=== PATIENT | male | born 1940 | race Caucasian/White ===

== ENCOUNTER 2017-01-13 09:17 | Day surgery (SDC) | payer BC, MEDICARE ==
[2017-01-13] MEDS ORDERED: ONDANSETRON HCL INJ/PF 4 MG/2 ML SDV ONE (10:03)
[2017-01-13] MEDS ORDERED: LIDOCAINE 2% JELLY 30 ML TUBE ONE (10:03)
[2017-01-13] MEDS ORDERED: NALOXONE HCL INJ/PF 0.4 MG/1 ML SDV ONE (10:03)
[2017-01-13] MEDS ORDERED: FENTANYL CITRATE INJ/PF 100 MCG/2 ML AMPUL ONE (10:04)
[2017-01-13] MEDS ORDERED: GLYCOPYRROLATE INJ 0.4 MG/2 ML VIAL ONE (10:04)
[2017-01-13] MEDS ORDERED: MIDAZOLAM 2 MG/2 ML INJ ONE ×2 (10:04)
[2017-01-13] MEDS ORDERED: PROMETHAZINE HCL INJ 25 MG/1 ML VIAL ONE (10:04)
[2017-01-13] MEDS ORDERED: FLUMAZENIL INJ 0.5 MG/5 ML VIAL IV ONE (10:05)
[2017-01-13] MEDS ORDERED: GLUCAGON,HUMAN RECOMB 1 MG INJ ONE (10:05)
[2017-01-13] MEDS ORDERED: EPINEPHRINE INJ 1 MG/10 ML DISP.SYRIN ONE (10:05)
[2017-01-13 11:33] VITALS: BP 130/69
[2017-01-13 12:10] LABS: ABSOLUTE EOSINOPHILS # (AUTO) 0.1 10^3/uL (0.0-0.6); ABSOLUTE LYMPHOCYTES (AUTO) 1.2 10^3/uL (0.5-4.7); ABSOLUTE MONOCYTES (AUTO) 0.6 10^3/uL (0.1-1.4); ABSOLUTE NEUT (AUTO) 4.8 10^3/uL (1.7-8.2); HEMOGLOBIN 14.9 g/dL (13.5-17.0); MEAN CORPUSCULAR HGB CONC 33.8 g/dL (32.0-36.0); MEAN CORPUSCULAR VOLUME 85 fl (80-97)
[2017-01-13 12:12] LABS: BASOPHILS % (AUTO) 0.4 % (0-2); EOSINOPHILS % (AUTO) 0.9 % (0-6); HEMATOCRIT 44.1 % (37.9-51.0); HGB HCT DIFFERENCE 0.6; LYMPHOCYTES % (AUTO) 18.3 % (13-45); MEAN CORPUSCULAR HEMOGLOBIN 28.7 pg (27.0-33.4); RED BLOOD COUNT 5.19 10^6/uL (4.35-5.55); RED CELL DISTRIBUTION WIDTH 14.2 % (11.5-14.0); SEGMENTED NEUTROPHILS % (AUTO) 71.4 % (42-78); WHITE BLOOD COUNT 6.7 10^3/uL (4.0-10.5)
--- NOTE | 2017-01-13 13:19 | OPERATIVE REPORT E ---
Operative Report NAME: MADY KAPOOR : 1940 AGE: 76Y DATE OF SURGERY: ROOM: PREOPERATIVE DIAGNOSIS: Rectal bleeding. POSTOPERATIVE DIAGNOSES: 1. Mild external thrombosed hemorrhoids. 2. Sigmoid, descending colon, diverticulosis, severe. 3. Small benign-looking polyp, 3 mm, mid-ascending colon. SURGEON: VICKEY MARRUFO M.D. ANESTHESIA: Versed 3, fentanyl 100. TISSUE REMOVED OR ALTERED: None. FINDINGS: Rectal exam, thrombosed external hemorrhoids. No active bleeding. Rectum, normal. Sigmoid, descending colon, diverticulosis. Transverse colon, normal. Ascending colon, 2 mm benign-looking polyp in the proximal ascending. Cecum, normal. No biopsy obtained. Patient cannot stop his Plavix. He has multiple stents. His recent stent for coronary artery disease is less than August last year. PROCEDURE: Cecum, normal. Ascending colon, small polyp, benign, 3 mm, too small to biopsy, and the patient is on Plavix. Transverse colon, normal. Descending sigmoid diverticulosis. PLAN: 1. Resume all medications. 2. Baseline CBC and CEA, and Chem profile. 3. Patient to see us in the office in the next few days. DICTATING PHYSICIAN: VICKEY MARRUFO M.D. [id number] Y#: [id number] ID: [id number] JOB#: [id number] ACCT: [id number] cc:VICKEY MARRUFO M.D., SHYAMAL M. D. >
--- NOTE | 2017-01-13 13:34 | HISTORY AND PHYSICAL E ---
History and Physical NAME: MADY KAPOOR : 1940 AGE: 76Y ADMITTED: 01/13/2017 ROOM: ADMIT DATE: 01/13/2017 CHIEF COMPLAINT: Patient known to me back in 1994 where he did have upper scope showing esophagitis, gastritis, referred to us at that time by Dr. Eckert. At this time, patient presented regarding rectal bleeding. MEDICATIONS: The patient takes: 1. Coumadin. 2. Plavix. PAST MEDICAL HISTORY: History of pulmonary emboli. PLAN: We will arrange for colon exam. Patient to be done while on Plavix. He does have multiple stents. The patient is being followed by Dr. Fuchs. ALLERGIES: 1. Codeine. 2. Phenergan. SOCIAL HISTORY: Patient does not smoke, does not drink. The patient did have upper scope in the past. REVIEW OF SYSTEMS: HEAD, EYES, EARS, NOSE AND THROAT: Unremarkable. GASTROINTESTINAL: History of rectal bleeding. PHYSICAL EXAMINATION: GENERAL: Pleasant, alert, oriented in no acute distress. VITAL SIGNS: Temperature is 98. Pulse 80. Respirations 20. Blood pressure 100/80. HEAD, EYES, EARS, NOSE AND THROAT: Normal. ABDOMEN: Soft. NEUROLOGIC EXAM: Negative. The patient presented at this time regarding colonoscopy. He did have previous colonoscopy in [place] and was told that he may have poor circulation, i.e., maybe ischemic colitis. At this time, patient for colonoscopy. The patient to be done while on medication, Plavix and Arixtra. The patient presented at this time regarding colonoscopy regarding rectal bleeding. Patient to be done in Endoscopy without stopping his Plavix regarding coronary artery disease. CONCLUSIONS: Rectal bleeding. The patient to be done while on Plavix. He has stents. His last stent is later than a year. Patient followed by Dr. Fuchs. PLAN: Colonoscopy while on anticoagulant. DICTATING PHYSICIAN: VICKEY MARRUFO M.D. [id number] PHY#: [id number] ID: [id number] JOB#: [id number] ACCT: [id number] cc:VICKEY MARRUFO M.D., SHYAMAL M. D. >
--- NOTE | 2017-01-14 18:28 | DISCHARGE SUMMARY E ---
Discharge Summary NAME: MADY KAPOOR : 1940 AGE: 76Y ADMITTED: 01/13/2017 DISCHARGED: 01/13/2017 A 76-year-old male with severe coronary artery disease, multiple cardiac catheterizations, multiple stents. Presented with rectal bleeding. The patient takes Plavix and aspirin. Today's colonoscopy shows no active bleeding, no cancer. Benign-looking polyp 3 mm mid ascending colon. Severe diverticulosis sigmoid and descending colon, not bleeding. Stool brown, scattered all around the colon, most likely bleeding from thrombosed external hemorrhoids. DISCHARGE PLAN: Baseline CBC. Continue all medications. Soft low residual diet. Followup visit in the next few days. DICTATING PHYSICIAN: VICKEY MARRUFO M.D. [id number] PHY#: [id number] ID: [id number] JOB#: [id number] ACCT: [id number] cc:VICKEY MARRUFO M.D., SHYAMAL M. D. >
== END 2017-01-13 12:00 | disposition home or self-care (01) ==
LOC: END 09:17
PROVIDERS: ATTEND Specialist
PROC: 0DJD8ZZ Inspection of Lower Intestinal Tract, Via Natural or Artificial Opening Endoscopic (ICD-10-PCS; principal; 2017-01-13 10:00)
DX: K62.5 Hemorrhage of anus and rectum (principal); K57.30 Diverticulosis of large intestine without perforation or abscess without bleeding; K64.5 Perianal venous thrombosis; D12.2 Benign neoplasm of ascending colon; I25.10 Atherosclerotic heart disease of native coronary artery without angina pectoris; Z79.02 Long term (current) use of antithrombotics/antiplatelets; Z79.82 Long term (current) use of aspirin; Z98.61 Coronary angioplasty status; Z79.01 Long term (current) use of anticoagulants; Z86.711 Personal history of pulmonary embolism; Z88.5 Allergy status to narcotic agent; Z88.8 Allergy status to other drugs, medicaments and biological substances
CPT/HCPCS: 45378; 36415; 85025; J2250; J3010; J1610; J2405; J0171; J2310; J2550; J3490

== ENCOUNTER 2017-05-04 00:26 | Observation (INO) | payer MEDICARE ==
[2017-05-04] MEDS ORDERED: ASPIRIN 81 MG TABLET, CHEWABLE PO ONE (00:28)
[2017-05-04] MEDS ORDERED: ASPIRIN 81 MG TABLET, ENT COATED PO ONE (00:43)
[2017-05-04 00:56] LABS: ABSOLUTE BASOPHILS # (AUTO) 0.1 10^3/uL (0.0-0.2); ABSOLUTE EOSINOPHILS # (AUTO) 0.1 10^3/uL (0.0-0.6); ABSOLUTE LYMPHOCYTES (AUTO) 1.5 10^3/uL (0.5-4.7); ABSOLUTE MONOCYTES (AUTO) 0.6 10^3/uL (0.1-1.4); BASOPHILS % (AUTO) 1.1 % (0-2); EOSINOPHILS % (AUTO) 0.8 % (0-6); HEMATOCRIT 41.9 % (37.9-51.0); HEMOGLOBIN 13.7 g/dL (13.5-17.0); HGB HCT DIFFERENCE -0.8; LYMPHOCYTES % (AUTO) 18.4 % (13-45); MEAN CORPUSCULAR HEMOGLOBIN 27.7 pg (27.0-33.4); MEAN CORPUSCULAR HGB CONC 32.7 g/dL (32.0-36.0); MEAN CORPUSCULAR VOLUME 85 fl (80-97); MONOCYTES % (AUTO) 6.9 % (3-13); RED BLOOD COUNT 4.96 10^6/uL (4.35-5.55); RED CELL DISTRIBUTION WIDTH 14.5 % (11.5-14.0); SEGMENTED NEUTROPHILS % (AUTO) 72.8 % (42-78); WHITE BLOOD COUNT 8.3 10^3/uL (4.0-10.5)
--- NOTE | 2017-05-04 01:24 | RADIOLOGY REPORT (SQ) ---
EXAM DESCRIPTION: CHEST SINGLE VIEW COMPLETED DATE/TIME: 05/04/2017 1:14 am REASON FOR STUDY: cp COMPARISON: Chest x-ray 09/30/2012, 06/09/2012. EXAM PARAMETERS: NUMBER OF VIEWS: One view. TECHNIQUE: Single frontal radiographic view of the chest acquired. RADIATION DOSE: NA LIMITATIONS: None. FINDINGS: LUNGS AND PLEURA: No consolidation, pneumothorax or pleural effusion. MEDIASTINUM AND HILAR STRUCTURES: No masses. Contour normal. HEART AND VASCULAR STRUCTURES: Heart normal in size. No overt vascular congestion. BONES: No acute findings. HARDWARE: Sternotomy wires are present. IMPRESSION: No acute radiographic finding in the chest. TECHNICAL DOCUMENTATION: JOB ID: [id number]
[2017-05-04 01:54] LABS: ALANINE AMINOTRANSFERASE 43 U/L (21-72); ALBUMIN 3.3 g/dL (3.5-5.0); ALKALINE PHOSPHATASE 81 U/L (38-126); ANION GAP 10 (5-19); ASPARTATE AMINO TRANSFERASE 18 U/L (17-59); BILIRUBIN,DIRECT 0.3 mg/dL (0.0-0.4); BILIRUBIN,TOTAL 0.5 mg/dL (0.2-1.3); BLOOD UREA NITROGEN 23 mg/dL (7-20); CALCIUM 8.7 mg/dL (8.4-10.2); CARBON DIOXIDE 25 mmol/L (22-30); CHLORIDE 103 mmol/L (98-107); CREATINE KINASE 48 U/L (55-170); CREATININE RESULT 0.95 mg/dL (0.52-1.25); GLUCOSE 93 mg/dL (75-110); SODIUM 137.7 mmol/L (137-145); TOTAL PROTEIN 6.6 g/dL (6.3-8.2)
[2017-05-04 02:05] LABS: CREATINE KINASE MB 0.59 ng/mL (<4.55); TROPONIN I < 0.012 ng/mL
--- NOTE | 2017-05-04 02:27 | ER Document Report ---
ED Cardiac - General Mode of Arrival: Medic Information source: Patient TRAVEL OUTSIDE OF THE [place] IN LAST 30 DAYS: No - HPI Patient complains to provider of: Chest pain, Shortness of breath Associated symptoms: Other - see above <ROSEY SILVERMAN - Last Filed: 05/04/17 03:35> <BENEDICTO JO - Last Filed: 05/04/17 05:20> - General Chief Complaint: Chest Pain Stated Complaint: CHEST PAIN Time Seen by Provider: 05/04/17 00:42 Notes: Patient is a 77 year old male who presents to the ED via EMS with complaints of chest pain with onset tonight while taking an albuterol treatment. Patient took 4 Nitroglycerin at home. Patient denies any chest pain currently. Patient states this feels like his chest pain in the past. Patient has recently been treated with antibiotics for pneumonia and bronchitis. Patient had open heart surgery in 2004 in [place] and has 12 stents in his heart. Patient states the last stent was placed in August 2 years ago. Patients last cardiac catheterization was done in October, patient states he has multiple blockages in the right side. Patient denies a history of COPD or Emphysema and is not on home O2. Patient also complaints of a cough and some SOB. Patient is on plavix. No other concerns or complaints at this time. ( ROSEY SILVERMAN) - Related Data Allergies/Adverse Reactions: codeine [Codeine] Allergy (Verified 01/12/17 14:38) "heart beats too fast" enoxaparin sodium [From Lovenox] Allergy (Verified 01/12/17 14:38) "heart beats too slow" nitroglycerin [From Nitro-Bid] Allergy (Verified 01/12/17 14:38) headaches, sick to stomach promethazine HCl [From Phenergan] Allergy (Verified 01/12/17 14:38) "see spiders on the frankel" Past Medical History - General Information source: Patient - Social History Smoking Status: Unknown if Ever Smoked Family History: Reviewed & Not Pertinent - Past Medical History Cardiac Medical History: Reports: Hx Congestive Heart Failure, Hx Coronary Artery Disease, Hx Heart Attack - 4, Hx Hypercholesterolemia, Hx Hypertension Pulmonary Medical History: Reports: Hx Bronchitis, Hx Pneumonia Denies: Hx Asthma, Hx COPD, Hx Tuberculosis Neurological Medical History: Denies: Hx Cerebrovascular Accident, Hx Seizures GI Medical History: Reports: Hx Diverticulitis, Hx Gastroesophageal Reflux Disease Musculoskeltal Medical History: Denies Hx Arthritis Past Surgical History: Reports: Hx Cardiac Surgery - 9 Stints, Quad Bypass, Hx Coronary Artery Bypass Graft, Hx Inguinal Hernia. Denies: Hx Pacemaker - Immunizations Immunizations up to date: Yes Hx Diphtheria, Pertussis, Tetanus Vaccination: Yes <ANDRAROSEY - Last Filed: 05/04/17 03:35> Review of Systems - Review of Systems Constitutional: No symptoms reported EENT: No symptoms reported Cardiovascular: See HPI, Chest pain Respiratory: See HPI, Cough, Short of breath Gastrointestinal: No symptoms reported Genitourinary: No symptoms reported Male Genitourinary: No symptoms reported Musculoskeletal: No symptoms reported Skin: No symptoms reported Hematologic/Lymphatic: No symptoms reported Neurological/Psychological: No symptoms reported <TIM SILVERMANANDRA - Last Filed: 05/04/17 03:35> Physical Exam - General General appearance: Appears well, Alert In distress: None - HEENT Head: Normocephalic, Atraumatic Eyes: Normal Extraocular movements intact: Yes Pupils: PERRL - Respiratory Respiratory status: No respiratory distress Chest status: Nontender Breath sounds: Normal Chest palpation: Normal - Cardiovascular Rhythm: Regular Heart sounds: Normal auscultation Murmur: No - Abdominal Inspection: Normal Distension: No distension Tenderness: Nontender - Back Back: Normal - Extremities General upper extremity: Normal inspection, Normal ROM General lower extremity: Normal inspection, Normal ROM - Neurological Neuro grossly intact: Yes Cognition: Normal Orientation: AAOx4 Ray Coma Scale Eye Opening: Spontaneous Ray Coma Scale Verbal: Oriented Ray Coma Scale Motor: Obeys Commands [place] Coma Scale Total: 15 Speech: Normal Motor strength normal: LUE, RUE, LLE, RLE Sensory: Normal - Psychological Associated symptoms: Normal affect, Normal mood - Skin Skin Temperature: Warm Skin Moisture: Dry Skin Color: Normal <ROSEY SILVERMAN - Last Filed: 05/04/17 03:35> Course - Laboratory Result Diagrams: 05/04/17 00:43 05/04/17 01:20 - Consults Dr. Arechiga, hospitalist Time consulted: 03:34 <ROSEY SILVERMAN - Last Filed: 05/04/17 03:35> - Laboratory Result Diagrams: 05/04/17 00:43 05/04/17 01:20 <BENEDICTO JO - Last Filed: 05/04/17 05:20> - Re-evaluation Re-evalutation: 05/04/17 03:37 Presents emergency department having acute onset of severe chest pain at home with breathing treatment. Has been treated recently for bronchitis and is on inhalers and Ceftin. Chest x-ray was negative for pneumonia. He said he developed acute onset of severe chest pain felt like his previous episodes where he says he clutched his chest became diaphoretic ashen toscano and told her that he was going to . Ambulance got there they gave him aspirin and 4 sublingual nitro sprays and his chest pain was resolved. He is chest pain-free in the emergency department he has extensive cardiac history including CABG and multiple stents. Left heart catheter evaluated to ago at which point they said small blockages not amenable to therapy but more medical treatment. He sees Dr. Fuchs here in [place]. No recent history of travel surgery immobilization DVT or pulmonary emboli. He has a left bundle branch block which is consistent with his previous and not new he has remained chest free chest pain-free and hemodynamically stable in the emergency department no clinical concern for dissection or PE. EKG does not show an acute [place] initial cardiac enzymes are negative. Will admit to the hospital chest pain observation with consultation to cardiology. (BENEDICTO JO) - Vital Signs Vital signs: Temp Pulse Resp BP Pulse Ox 98.3 F 16 113/72 96 05/04/17 00:43 05/04/17 05:00 05/04/17 04:00 05/04/17 05:00 - Laboratory Laboratory results interpreted by me: 05/04/17 05/04/17 00:43 01:20 RDW 14.5 H BUN 23 H Creatine Kinase 48 L Albumin 3.3 L - EKG Interpretation by Me Additional EKG results interpreted by me: 05/04/17 03:39 EKG interpreted by myself to reveal sinus rhythm at 77 bpm with incomplete left bundle branch block has a history of left bundle branch block present on 2011. No acute ST segment elevation or depression (BENEDICTO JO) - Consults Dr. Arechiga, hospitalist Reason for consultation: 05/04/17 03:34 Discussed patient. Patient is accepted for admission. (ROSEY SILVERMAN) Discharge <ROSEY SILVERMAN - Last Filed: 05/04/17 03:35> - Discharge Admitting Provider: Hospitalist Unit Admitted: Telemetry <BENEDICTO JO - Last Filed: 05/04/17 05:20> - Discharge Clinical Impression: Chest pain Qualifiers: Chest pain type: unspecified Qualified Code(s): R07.9 - Chest pain, unspecified Scribe Attestation: 05/04/17 03:38 I personally performed the services described in the documentation reviewed the documentation recorded by my scribe in my presence and it accurately and completely records my words and actions (BENEDICTO JO) Scribe Documentation - Scribe Written by Gene:: gene Viera, 05/04/2017, 1427 acting as scribe for :: Ever <ROSEY SILVERMAN - Last Filed: 05/04/17 03:35>
[2017-05-04] MEDS ORDERED: ACETAMINOPHEN 325 MG TABLET PO PRN (03:41)
[2017-05-04 04:01] LABS: ADD ON TESTING BLD IN LAB ACKNOWLEDGE
[2017-05-04] MEDS ORDERED: MAG HYDROX/AL HYDROX/SIMETH SUSP 30 ML UDCUP PO PRN ×2 (06:40→14:03)
--- NOTE | 2017-05-04 07:31 | PDOC H&P ---
History of Present Illness Admission Date/PCP: 05/04/17 06:40 LAVINIA SHIPMAN PA-C Cardiology Dr. Fuchs Patient complains of: Chest pain History of Present Illness: MADY KAPOOR is a 77 year old with underlying coronary artery disease, having undergone a four-vessel bypass in 2004, with implantation subsequently of multiple stents. Cardiac catheterization in [place] in October of this year revealed disease that was reportedly not amenable to further intervention. Presents to the emergency room for evaluation of sudden onset of prominent pressure-like and sharp substernal chest pain the evening of the while taking an albuterol treatment for his underlying on home O2 dependent COPD. Was rather frightening to the patient; reportedly told his that he thought he was going to . Associated cold sweats, and nausea, no vomiting. Complete resolution with 4 sublingual nitroglycerin sprays. Has not recurred. Has had prior such episodes in the past. Over the last 2 or 3 weeks, he has had problems with respiratory tract infections, reportedly diagnosed 2 weeks ago with influenza A; refused to take Tamiflu due to concern for cardiac side effects. This past Monday he finished a Z-Arnol; on the day the Z-Arnol was started, he finished a course of oral Levaquin. Still bothered by a persistent and quite annoying dry cough. History of both DVT and pulmonary embolus when he was recovering from his bypass graft in 2004. States he was on Coumadin for approximately a year. No recent long trip with prolonged inactivity, or unusual lower extremity swelling or tenderness. Currently resting quietly, chest pain-free. Patient has been discussed with emergency room physician who evaluated the patient. . Laboratory results are listed in [facility] and are reviewed. X-ray summary results are listed below, with full report(s) reviewed. . EKG reviewed and compared to a prior tracing from September 28, 2012. Social history/personal habits: . Has children. Retired. Distant history of cigarette smoking, approximately 40 Years ago. No alcohol or illicit drug use. Allergies/adverse reactions are listed in [facility] and are reviewed. Home medications initially autopopulated into [facility] may not accurately reflect patient's true medications, dosages, and/or frequencies. 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 Unfortunately, patient not certain of all medications/dosages/frequencies. REVIEW OF SYSTEMS: Constitutional: See history and present illness. Eyes: Wears glasses. ENT: No swallowing problems or complaints. Partial hearing loss. Pulmonary: See history and present illness. Cardiovascular: See history and present illness. Gastrointestinal: See history and present illness. Skin: No current complaints, including rash. Hematologic: Easy bruising. Neurologic: No current complaints, including numbness or tingling. Musculoskeletal: No current or chronic joint complaints, such as arthritis. Psychiatric: Intermittent problems with panic disorder. Mild occasional depression; denies suicidal or homicidal ideation. Endocrine: No current complaints, including polyuria. Genitourinary: No current complaints, including dysuria. PHYSICAL EXAMINATION: 6 feet 1 inches tall. 81.4 kg. BMI 23.7 kg/m. Blood pressure 137/82. Pulse 55 and regular. 100% saturation on 3 L oxygen per nasal cannula. Respirations are 14 and unlabored. Temperature 98.3. Thin somewhat chronically ill-appearing male who appears perhaps a bit older than his stated age. Pleasant awake alert and cooperative. Somewhat anxious at times; rather talkative, but no lavinia agitation. is present at his side; patient approves. Skin is warm and dry. No grossly obvious evidence of rash in areas of skin examined. No subcutaneous nodules palpated. ENT: Perhaps mildly hard of hearing to normal conversation. Tongue midline on protrusion pink and moist. Eyes: No scleral icterus. Pupils equal and reactive to light at 4 mm. [place] conjunctivae. Neck is supple and nontender to gentle active range of motion and palpation. Midline trachea. No palpable thyroid nodule mass enlargement or tenderness. Lymphatic: No palpable cervical or clavicular nodes. Neck and lymphatic exams limited by patient body habitus. Psychiatric: Reasonable insight into acute and chronic medical issues. Oriented to time location and why here. Lungs: Auscultation reveals clear and equal breath sounds bilaterally. No use of accessory respiratory muscles. Intermittent somewhat prominent dry cough. Cardiovascular: Heart regular rate and rhythm, without gallop murmur or rub. No carotid or abdominal aortic bruits. No ankle or pedal edema. Faintly palpable dorsalis pedis pulses. Abdomen:soft slightly distended nontender with positive bowel sounds. Unable to adequately evaluate abdomen for masses or organomegaly due to distention. Compression of neither his upper abdomen nor sternum reproduces his previously noted chest discomfort. Extremities: Feet are warm and dry. No calf tenderness to compression. No grossly obvious visual evidence of calf swelling. Gentle manipulation of lower extremities fails to reveal any obvious evidence of injury or instability to knees hips or ankles. Neurologic: Moves upper extremities grossly normally. Patellar reflexes absent. Absent Babinski. Light touch is intact at feet. Dorsiflexion and plantarflexion of feet 5 / 5 and symmetric. Past Medical History Cardiac Medical History: Reports: Congestive Heart Failure, Coronary Artery Disease, DVT - 2005 after coronary bypass, Myocardial Infarction - 4, Hyperlipidema, Hypertension, Pulmonary Embolism - 2005 after coronary bypass Pulmonary Medical History: Reports: Bronchitis, Chronic Obstructive Pulmonary Disease (COPD), Pneumonia Denies: Asthma, Sleep Apnea, Tuberculosis EENT Medical History: Reports: Eyes - Glasses, Ears - Partial hearing loss Denies: Throat Neurological Medical History: Reports: Other - Prior TIA Denies: Hemorrhagic CVA, Ischemic CVA, Seizures Endocrine Medical History: Denies: Diabetes Mellitus Type 1, Diabetes Mellitus Type 2, Hyperthyroidism, Hypothyroidism Renal/ Medical History: Reports: None GI Medical History: Reports: Gastroesophageal Reflux Disease Denies: Cirrhosis, Hepatitis, Peptic Ulcer Disease Musculoskeltal Medical History: Denies: Arthritis Skin Medical History: Reports: None Psychiatric Medical History: Denies: Alcohol Dependency, Depression, General Anxiety Disorder, Substance Abuse, Tobacco Dependency Hematology: Denies: Anemia Infectious Medical History: Denies: Clostridium Difficile, Hepatitis B, Hepatitis C, Methicillin- Resistant Staph Aureus Past Surgical History Past Surgical History: Reports: Coronary Artery Bypass Graft, Coronary Stent, Herniorrhaphy - Right inguinal Denies: Pacemaker Social History Information Source: Patient, Emergency Med Personnel, [facility] Records Lives with: Spouse/Significant other Smoking Status: Former Smoker Frequency of Alcohol Use: None Hx Recreational Drug Use: No Drugs: None Hx Prescription Drug Abuse: No - Advance Directive Resuscitation Status: Full Code Surrogate healthcare decision maker:: Family History Family History: Reviewed & Not Pertinent Parental Family History Reviewed: Yes - Mother of stroke with hemorrhage; father of cancer Children Family History Reviewed: Yes - Healthy Sibling(s) Family History Reviewed.: Yes Medication/Allergy Home Medications: Albuterol Sulfate [Ventolin 0.083% Neb 2.5 mg/3 mL Ampul] 1 vial NEB RTQ8 Albuterol Sulfate [Ventolin Hfa] 2 puff IH Q4 05/04/17 Aspirin [Aspirin 81 mg Chewable Tablet] 81 mg PO DAILY #1 pkg 05/04/17 Atorvastatin Calcium [Lipitor 40 mg Tablet] 40 mg PO QHS #30 tablet 05/04/17 Clonazepam [Klonopin 1 mg Tablet] 1 mg PO DAILY 05/04/17 Clopidogrel Bisulfate [Plavix 75 mg Tablet] 75 mg PO DAILY 05/04/17 Ipratropium [place] [Atrovent 0.02% Neb 0.5 mg/2.5 ml Ampul] 0.5 mg NEB RTQ8 Metoprolol Succinate [Toprol Xl 25 mg Tab.sr] 25 mg PO Q12 05/04/17 Omeprazole 20 mg PO BID 05/04/17 Ranolazine [Ranexa] 1,000 mg PO Q12 05/04/17 Zolpidem Tartrate [Ambien 5 mg Tablet] 5 mg PO HSP PRN 05/04/17 Allergies/Adverse Reactions: codeine [Codeine] Adverse Reaction (Verified 05/04/17 06:38) "heart beats too fast" enoxaparin sodium [From Lovenox] Adverse Reaction (Verified 05/04/17 06:38) "heart beats too slow" nitroglycerin [From Nitro-Bid] Adverse Reaction (Verified 05/04/17 06:38) headaches, sick to stomach oxycodone [From Percocet] Adverse Reaction (Verified 05/04/17 06:37) n/v promethazine HCl [From Phenergan] Adverse Reaction (Verified 05/04/17 06:37) "see spiders on the frankel" Physical Exam Vital Signs: Temp Pulse Resp BP Pulse Ox 98.3 F 16 113/72 96 05/04/17 00:43 05/04/17 05:00 05/04/17 04:00 05/04/17 05:00 Results Impressions: Chest X-Ray 05/04/17 00:28 IMPRESSION: No acute radiographic finding in the chest. Assessment & Plan - Diagnosis (1) Chest pain Qualifiers: Chest pain type: unspecified Qualified Code(s): R07.9 - Chest pain, unspecified Is this a current diagnosis for this admission?: YesPlan: Patient will be placed in observation bed under chest pain protocol. Patient understands to notify staff should chest pain recur. Serial troponin . Repeat EKG. lipid panel. I have strongly encouraged patient to be careful getting out of bed without notifying staff, to avoid a fall with injury. Knee high SCDs for DVT prophylaxis, along with subcu heparin. Impression and plans were discussed with patient and , both of whom concur. Time spent in evaluation and management of patient: 74 minutes. (2) History of influenza Is this a current diagnosis for this admission?: Yes (3) History of DVT (deep vein thrombosis) Is this a current diagnosis for this admission?: YesPlan: Check d-dimer. (4) History of pulmonary embolism Is this a current diagnosis for this admission?: Yes (5) Stented coronary artery Is this a current diagnosis for this admission?: Yes
--- NOTE | 2017-05-04 08:20 | EKG REPORT ---
SEVERITY:- ABNORMAL ECG - SINUS RHYTHM LAFB NONSPECIFIC LATERAL ST-T CHANGES : Confirmed by: Lisandro Das MD 04-May-2017 08:20:17
[2017-05-04] MEDS ORDERED: HEPARIN SOD (PORCINE) 5,000 UNIT/ML 1 ML SYRINGE SUBCUT SCH (10:00)
[2017-05-04] MEDS ORDERED: DOCUSATE SODIUM 100 MG CAPSULE PO SCH (10:00)
[2017-05-04 11:15] LABS: CHOLESTEROL 221.89 mg/dL (0-200); Direct HDL 45 mg/dL (>40); TRIGLYCERIDES 214 mg/dL (<150)
[2017-05-04 11:25] LABS: DIRECT LDL 136 mg/dL (<100)
[2017-05-04 11:29] LABS: VLDL CHOLESTEROL 42.8 mg/dL (10-31)
--- NOTE | 2017-05-04 11:38 | RADIOLOGY REPORT (SQ) ---
EXAM DESCRIPTION: CTA CHEST COMPLETED DATE/TIME: 05/04/2017 11:22 am REASON FOR STUDY: +D-Dimer, chest pain, dyspnea, H/O PE COMPARISON: Portable chest dated 05/04/2007 TECHNIQUE: CT scan of the chest performed using helical scanning technique with dynamic intravenous contrast injection. Images reviewed with lung, soft tissue and bone windows. Reconstructed coronal and sagittal MPR images reviewed. Additional 3 dimensional post-processing performed to develop Maximal Intensity Projection images (WI P). All images stored on PACS. All CT scanners at this facility use dose modulation, iterative reconstruction, and/or weight based d osing when appropriate to reduce radiation dose to as low as reasonably achievable (ALARA). [facility]: Dose Right [facility]: CareDose [facility]: Dose Right [facility]: Teradose 4D [facility]: EpiBone CONTRAST TYPE AND DOSE: contrast/concentration: Isovue 370.00 mg/ml; Total Contrast Delivered: 64.0 ml; Total Saline Delivered: 80.1 ml RENAL FUNCTION: Creatinine 0.95 RADIATION DOSE: Up-to-date CT equipment and radiation dose reduction techniques were employed. CTDIv ol: 9.4 - 13.1 mGy. DLP: 503 mGy-cm. . LIMITATIONS: None. FINDINGS: LUNGS AND PLEURA: No masses, infiltrates, pneumothorax. No pleural effusions, calcificati ons. AORTA AND GREAT VESSELS: No aneurysm or dissection. HEART: No pericardial effusion. PULMONARY ARTERIES: No emboli visualized in the main pulmonary arteries or the segmental branches. HILAR AND MEDIASTINAL STRUCTURES: No identified masses or abnormal nodes. HARDWARE: Patient is status post median sternotomy. UPPER ABDOMEN: No significant findings. Limited exam. THYROID AND OTHER SOFT TISSUES: No masses. No adenopathy. BONES: No acute or significant finding. 3D MIPS: Confirm above findings. OTHER: No other significant finding. IMPRESSION: NORMAL CTA OF THE CHEST. NO PULMONARY EMBOLI. TECHNICAL DOCUMENTATION: JOB ID: [id number] Quality ID # [id number]: Final reports with documentation of one or more dose reduction techniques (e.g., Au tomated exposure control, adjustment of the mA and/or kV according to patient size, use of iterative reconstruction technique) 2010 [employer]- All Rights Reserved
[2017-05-04 12:31] VITALS: BP 133/68
[2017-05-04] MEDS ORDERED: CLONAZEPAM 1 MG TABLET PO PRN (13:06)
[2017-05-04] MEDS ORDERED: (PENDING PHARMACY ID) (Ranolazine [Ranexa] 1,000 MG) PO SCH (13:15)
[2017-05-04] MEDS ORDERED: CLOPIDOGREL BISULFATE 75 MG TABLET PO ONE (14:00)
[2017-05-04] MEDS ORDERED: METOPROLOL SUCCINATE 25 MG TAB.SR.24H PO ONE (14:00)
[2017-05-04] MEDS ORDERED: LANSOPRAZOLE 15 MG TAB.RAP.DR PO SCH (18:00)
--- NOTE | 2017-05-04 19:53 | DISCHARGE SUMMARY E ---
Discharge Summary NAME: MADY KAPOOR : 1940 AGE: 77Y ADMITTED: 05/04/2017 DISCHARGED: 05/04/2017 CODE STATUS: FULL CODE. OUTPATIENT TECHNOLOGY INTERN: Dr. Fuchs. PRIMARY CARE PROVIDER: Naldo Curtis MD DISCHARGE DIAGNOSES: 1. Coronary artery disease; is reportedly nonamenable to further intervention. 2. Chest pain secondary to #1 which is resolved. 3. Oxygen dependent COPD. 4. Recent bronchitis. 5. Hyperlipidemia. 6. Hypertension. 7. History of pulmonary embolism. 8. History of TIAs. 9. Gastroesophageal reflux disease. ALLERGIES: 1. CODEINE. 2. LOVENOX. 3. NITROGLYCERIN. 4. OXYCODONE. 5. PHENERGAN. DISCHARGE MEDICATIONS: 1. Ambien 5 mg p.o. every hour of sleep p.r.n. 2. Ranexa 1 gm p.o. q.12 h. 3. Omeprazole 20 mg p.o. b.i.d. 4. Toprol 25 mg p.o. q.12 h. 5. Atrovent 0.5 mg nebs q.8 h. 6. Plavix 75 mg p.o. daily. 7. Klonopin 1 mg p.o. q.a.m. 8. Ventolin HFA 2 puff inhalation q.4 h. p.r.n. 9. Ventolin 0.083 neb, 1 negative q.8 h. 10. Aspirin 81 mg p.o. daily. 11. Lipitor 40 mg p.o. every hour of sleep. DIET: Heart healthy. ACTIVITY: As tolerated. DIAGNOSTICS: Lab values are as follows: Hematology on 05/04/2017: WBCs are 8.3, hemoglobin 13.7, hematocrit 31.9, and platelet count is 169,000. Coagulation obtained on 05/04/2017: D-dimer is 0.84. Chemistry obtained on 05/04/2017: Sodium is 137, potassium 4.0, chloride 103, carbon dioxide 25, BUN 23, creatinine 0.95, glucose 93, calcium 8.7, magnesium 2.0, bilirubin 0.5, AST 18, ALT 43, alkaline phosphatase 81, CK 48, CK-MB 0.59, troponin 0.012, total protein 6.6, albumin 3.3, triglycerides are 214, cholesterol 221, LDL 136, VLDL 42, HDL is 45. CTA of the chest and abdomen obtained on 05/04/[address] of the chest without evidence of pulmonary emboli. Chest x-ray obtained on 05/04/2017 revealed no acute radiographic finding of the chest. EKG obtained on 05/04/2017 reveals sinus rhythm. HISTORY OF PRESENT ILLNESS: The patient is a 77-year-old male with a past medical history of severe coronary artery disease and COPD. The patient presented to the emergency department with a chief complaint of chest pain. The patient noted a sudden onset of prominent chest pressure which was sharp, substernal chest pain on the evening of 05/03 while taking a neb. The patient associated this with cold sweats and nausea but no vomiting. The patient had complete resolution of symptoms with 4 sublingual nitro spray. The patient is not on a chronic nitrate, stating that he cannot tolerate it. The patient had no reoccurrence of the symptoms. Over the past 2-3 weeks the patient has had problems with respiratory tract infections according to him. He 2 weeks ago was diagnosed with influenza A but refused to take Tamiflu. The patient this past Monday started a Z-LAN and prior to that completed a course of Levaquin. The patient is still bothered by annoying dry cough; however, upon presentation to the emergency department the patient was found to be normotensive with no EKG changes, unremarkable cardiac enzymes; however, the patient was referred to the hospitalist for observation and management. HOSPITAL COURSE: The patient was observed in continuous telemetry unit. Serial cardiac enzymes were obtained which were nonsuggestive. The patient had no replication of events and no evidence on the desulphuring operator. The patient had no EKG changes. It is to be noted that the patient had a cardiac catheterization at [facility] in October of this year and revealed disease that was reportedly not amenable to any further intervention given that the patient has already had quadruple vessel bypass and has had numerous stents. The patient does have a history of PE in the past and given his mild elevation of D-dimer, he underwent a CTA which was unremarkable for pulmonary embolism as well as pleural effusion, infiltrate or pneumonia, therefore, deferred any further antibiotics for the patient. The patient has symptom resolution and is eager for discharge. DISCHARGE PLANNIN. The patient is advised to follow up with primary care provider as already scheduled. 2. 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 Fuchs, as already scheduled. Time spent on this discharge including assessment and plan, physical examination, patient education, and 2 separate visits for the patient during this stay is 35 minutes. DICTATING PHYSICIAN: SUDARSHAN BURCH NP [id number] PHY#: [id number] ID: [id number] JOB#: [id number] ACCT: [id number] cc:LUISA JEROME M.D., MICHAEL NP > MTDD
[2017-05-04] MEDS ORDERED: METOPROLOL SUCCINATE 25 MG TAB.SR.24H PO SCH (22:00)
[2017-05-04] MEDS ORDERED: RANOLAZINE 500 MG TAB.SR.12H PO SCH (22:00)
[2017-05-05] MEDS ORDERED: CLOPIDOGREL BISULFATE 75 MG TABLET PO SCH (10:00)
== END 2017-05-04 15:19 | disposition home or self-care (01) ==
LOC: ER 00:26 → UNDOADMOB 03:47 → EH 03:47 → 4N 06:25 → EH 06:25 → 4N 06:40 → EH 06:40
PROVIDERS: ADMIT Family Medicine; ATTEND Family Medicine
DX: I25.10 Atherosclerotic heart disease of native coronary artery without angina pectoris (principal); R07.89 Other chest pain; J44.9 Chronic obstructive pulmonary disease, unspecified; Z99.81 Dependence on supplemental oxygen; Z87.09 Personal history of other diseases of the respiratory system; E78.5 Hyperlipidemia, unspecified; I10 Essential (primary) hypertension; K21.9 Gastro-esophageal reflux disease without esophagitis; Z86.73 Personal history of transient ischemic attack (TIA), and cerebral infarction without residual deficits; I25.2 Old myocardial infarction; I11.0 Hypertensive heart disease with heart failure; I50.9 Heart failure, unspecified; I44.7 Left bundle-branch block, unspecified; Z86.19 Personal history of other infectious and parasitic diseases; Z95.1 Presence of aortocoronary bypass graft; Z95.5 Presence of coronary angioplasty implant and graft; Z86.718 Personal history of other venous thrombosis and embolism; Z87.891 Personal history of nicotine dependence; Z82.3 Family history of stroke; Z80.9 Family history of malignant neoplasm, unspecified; Z79.02 Long term (current) use of antithrombotics/antiplatelets; Z79.82 Long term (current) use of aspirin; Z79.899 Other long term (current) drug therapy; Z87.01 Personal history of pneumonia (recurrent)
CPT/HCPCS: 93005; 99285; 36415; 82553; 82550; 83735; 85025; 80053; 84484; 85379; 80061; 71010; 71275; 93010; G0378; A9270; J1644

== ENCOUNTER → 2017-11-17 | Outpatient (CLI) | payer MEDICARE ==
[2017-11-17 12:14] LABS: ALANINE AMINOTRANSFERASE 24 U/L (21-72); ALBUMIN 4.3 g/dL (3.5-5.0); ALKALINE PHOSPHATASE 52 U/L (38-126); ANION GAP 10 (5-19); ASPARTATE AMINO TRANSFERASE 20 U/L (17-59); BILIRUBIN,DIRECT 0.1 mg/dL (0.0-0.4); BILIRUBIN,TOTAL 0.8 mg/dL (0.2-1.3); BLOOD UREA NITROGEN 14 mg/dL (7-20); CALCIUM 9.9 mg/dL (8.4-10.2); CARBON DIOXIDE 30 mmol/L (22-30); CHLORIDE 103 mmol/L (98-107); GLUCOSE 99 mg/dL (75-110); POTASSIUM 4.5 mmol/L (3.6-5.0); SODIUM 142.5 mmol/L (137-145); TOTAL PROTEIN 7.5 g/dL (6.3-8.2)
[2017-11-17 16:39] LABS: CHOLESTEROL 309.92 mg/dL (0-200); TRIGLYCERIDES 298 mg/dL (<150)
[2017-11-17 16:49] LABS: DIRECT LDL 191 mg/dL (<100)
[2017-11-17 16:53] LABS: VLDL CHOLESTEROL 59.6 mg/dL (10-31)
[2017-11-17 17:00] LABS: HEMOGLOBIN 15.5 g/dL (13.5-17.0); LYMPHOCYTES % (AUTO) 23.8 % (13-45); MEAN CORPUSCULAR HEMOGLOBIN 27.7 pg (27.0-33.4); MEAN CORPUSCULAR HGB CONC 33.7 g/dL (32.0-36.0); MEAN CORPUSCULAR VOLUME 82 fl (80-97); PLATELET COUNT 166 10^3/uL (150-450); RED BLOOD COUNT 5.59 10^6/uL (4.35-5.55); RED CELL DISTRIBUTION WIDTH 14.7 % (11.5-14.0); SEGMENTED NEUTROPHILS % (AUTO) 64.3 % (42-78); WHITE BLOOD COUNT 5.4 10^3/uL (4.0-10.5)
[2017-11-17 17:01] LABS: ABSOLUTE EOSINOPHILS # (AUTO) 0.1 10^3/uL (0.0-0.6); ABSOLUTE LYMPHOCYTES (AUTO) 1.3 10^3/uL (0.5-4.7); ABSOLUTE MONOCYTES (AUTO) 0.5 10^3/uL (0.1-1.4); ABSOLUTE NEUT (AUTO) 3.4 10^3/uL (1.7-8.2); BASOPHILS % (AUTO) 0.8 % (0-2); MONOCYTES % (AUTO) 9.1 % (3-13); TOTAL CELLS COUNTED % (AUTO) 100 %
== END ==
LOC: OD 10:45
PROVIDERS: ATTEND Psychiatry & Neurology Psychiatry
DX: F41.0 Panic disorder [episodic paroxysmal anxiety] (principal); Z79.899 Other long term (current) drug therapy
CPT/HCPCS: 36415; 80053; 80061; 84443; 85025

== ENCOUNTER → 2018-05-23 | Outpatient (CLI) | payer MEDICARE ==
[2018-05-23 11:59] LABS: ABSOLUTE EOSINOPHILS # (AUTO) 0.1 10^3/uL (0.0-0.6); ABSOLUTE LYMPHOCYTES (AUTO) 1.5 10^3/uL (0.5-4.7); ABSOLUTE MONOCYTES (AUTO) 0.5 10^3/uL (0.1-1.4); ABSOLUTE NEUT (AUTO) 3.6 10^3/uL (1.7-8.2); BASOPHILS % (AUTO) 0.8 % (0-2); EOSINOPHILS % (AUTO) 1.6 % (0-6); HEMATOCRIT 43.7 % (37.9-51.0); HEMOGLOBIN 14.7 g/dL (13.5-17.0); LYMPHOCYTES % (AUTO) 26.9 % (13-45); MEAN CORPUSCULAR HEMOGLOBIN 27.5 pg (27.0-33.4); MEAN CORPUSCULAR HGB CONC 33.6 g/dL (32.0-36.0); MEAN CORPUSCULAR VOLUME 82 fl (80-97); MONOCYTES % (AUTO) 8.6 % (3-13); PLATELET COUNT 175 10^3/uL (150-450); RED BLOOD COUNT 5.34 10^6/uL (4.35-5.55); RED CELL DISTRIBUTION WIDTH 15.1 % (11.5-14.0); SEGMENTED NEUTROPHILS % (AUTO) 62.1 % (42-78); TOTAL CELLS COUNTED % (AUTO) 100 %; WHITE BLOOD COUNT 5.7 10^3/uL (4.0-10.5)
[2018-05-23 12:24] LABS: ALANINE AMINOTRANSFERASE 16 U/L (21-72); ALKALINE PHOSPHATASE 51 U/L (38-126); ANION GAP 11 (5-19); ASPARTATE AMINO TRANSFERASE 20 U/L (17-59); BILIRUBIN,DIRECT 0.2 mg/dL (0.0-0.4); BILIRUBIN,TOTAL 0.6 mg/dL (0.2-1.3); BLOOD UREA NITROGEN 18 mg/dL (7-20); CALCIUM 9.3 mg/dL (8.4-10.2); CARBON DIOXIDE 27 mmol/L (22-30); CHLORIDE 103 mmol/L (98-107); CHOLESTEROL 278.93 mg/dL (0-200); GLUCOSE 98 mg/dL (75-110); POTASSIUM 4.6 mmol/L (3.6-5.0); SODIUM 141.4 mmol/L (137-145); TOTAL PROTEIN 7.3 g/dL (6.3-8.2); TRIGLYCERIDES 226 mg/dL (<150)
[2018-05-23 12:35] LABS: DIRECT LDL 165 mg/dL (<100)
[2018-05-23 12:41] LABS: VLDL CHOLESTEROL 45.2 mg/dL (10-31)
== END ==
LOC: OD 11:24
PROVIDERS: ATTEND Psychiatry & Neurology Psychiatry
DX: F41.0 Panic disorder [episodic paroxysmal anxiety] (principal)
CPT/HCPCS: 36415; 80053; 80061; 84443; 85025